=== PATIENT | female | born 1970 | race African-American/Black ===

== ENCOUNTER 2021-02-01 06:21 | Inpatient (IN) | payer OTHER ==
[2021-01-26 14:39] VITALS: BMI 27.3
[2021-02-01] MEDS ORDERED: BUPIVACAINE LIPOSOME/PF (EXPAREL) 266 MG/20 ML VIAL ONE (08:15)
[2021-02-01] MEDS ORDERED: MIDAZOLAM HCL 2 MG/2 ML SINGLE DOSE VIAL ONE ×3 (08:15→10:07)
[2021-02-01] MEDS ORDERED: SODIUM CHLORIDE 0.9% P/F 10 ML VIAL IJ ONE (08:15)
[2021-02-01] MEDS ORDERED: BUPIVACAINE HCL 50 ML ONE ×2 (08:15→09:02)
[2021-02-01] MEDS ORDERED: DEXAMETHASONE SOD PHOSPHATE 4 MG/1 ML VIAL ONE (09:00)
[2021-02-01] MEDS ORDERED: ONDANSETRON 4 MG/2 ML VIAL ONE (09:00)
[2021-02-01] MEDS ORDERED: VANCOMYCIN 1,000 MG VIAL (RESTRICTED TO ID ONLY) ONE ×2 (09:00→10:13)
[2021-02-01] MEDS ORDERED: TRANEXAMIC ACID 1000 MG/10 ML VIAL ONE (09:00)
[2021-02-01] MEDS ORDERED: ceFAZolin SODIUM 1 GM VIAL ONE (09:00)
[2021-02-01] MEDS ORDERED: PROPOFOL 20 ML ONE ×7 (09:03→11:38)
[2021-02-01] MEDS ORDERED: ONDANSETRON 4 MG/2 ML VIAL IVPUSH PRN ×2 (09:36→12:54)
[2021-02-01] MEDS ORDERED: LACTATED RINGERS SOLUTION 1,000 ML IV SCH ×2 (09:45→13:00)
[2021-02-01] MEDS ORDERED: BUPIVICAINE 0.25%/MORPH PF/KETOROLAC - 51ML DISP.SYRINGE IA ONE ×2 (11:14→11:17)
[2021-02-01] MEDS ORDERED: VANCOMYCIN 1,000 MG VIAL (RESTRICTED TO ID ONLY) IVPB ONE (11:17)
[2021-02-01] MEDS ORDERED: ACETAMINOPHEN 325 MG TABLET (FP) PO SCH (12:00)
[2021-02-01] MEDS ORDERED: MAG HYDROX/AL HYDROX/SIMETH 30 ML UNIT-DOSE CUP PO PRN (12:54)
[2021-02-01] MEDS ORDERED: ACETAMINOPHEN 325 MG TABLET (FP) ONE (13:41)
[2021-02-01] MEDS: oxyCODONE HCL 10 MG SUSTAINED ACTING TABLET PO SCH ×2 (15:27→21:16)
[2021-02-01] MEDS: CEFAZOLIN 2 GM/D5W 2 GM/50 ML ML IVPB SCH (16:36)
[2021-02-01] MEDS: ACETAMINOPHEN 325 MG TABLET (FP) PO SCH (19:28)
[2021-02-01] MEDS: oxyCODONE HCL 5 MG TABLET PO PRN (19:29)
[2021-02-01] MEDS ORDERED: CEFAZOLIN 2 GM/D5W 2 GM/50 ML ML IVPB SCH (20:00)
[2021-02-01] MEDS: GABAPENTIN 300 MG CAPSULE PO SCH (21:16)
[2021-02-01] MEDS: SENNOSIDES/DOCUSATE COMBO (SENNA PLUS) TABLET (UD) PO SCH (21:17)
[2021-02-02] MEDS: CEFAZOLIN 2 GM/D5W 2 GM/50 ML ML IVPB SCH ×2 (00:17→09:39)
[2021-02-02] MEDS: oxyCODONE HCL 5 MG TABLET PO PRN ×4 (00:39→15:36)
[2021-02-02] MEDS: ACETAMINOPHEN 325 MG TABLET (FP) PO SCH ×4 (01:23→21:23)
[2021-02-02 08:15] LABS: CALCIUM 9.2 mg/dl (8.5-10); CREATININE 0.5 mg/dl (0.55-1.3)
[2021-02-02 08:17] LABS: HEMATOCRIT 34.7 % (32.4-45.2); HEMOGLOBIN 11.5 GM/dl (10.7-15.3); MCH 29.8 pg (25.7-33.7); MCHC 33.2 g/dl (32.0-36.0); MEAN CELL VOLUME 89.9 fl (80-96); MEAN PLT VOLUME 9.1 fl (7.5-11.1); PLATELET COUNT 255 K/MM3 (134-434); RBC 3.86 M/mm3 (3.60-5.2); RDW 13.8 % (11.6-15.6); WHITE BLOOD COUNT 9.4 K/mm3 (4.0-10.8)
[2021-02-02] MEDS: MULTIVITAMINS (DAILY MVI) TABLET (FP) PO SCH (09:34)
[2021-02-02] MEDS: SENNOSIDES/DOCUSATE COMBO (SENNA PLUS) TABLET (UD) PO SCH ×2 (09:34→21:22)
[2021-02-02] MEDS: DULoxetine HCL 30 MG CAPSULE.DR PO SCH (09:34)
[2021-02-02] MEDS: ASPIRIN 325 MG TABLET PO SCH ×2 (09:35→21:22)
[2021-02-02] MEDS: PANTOPRAZOLE 40 MG TABLET PO SCH (09:35)
[2021-02-02] MEDS: ARIPiprazole 15 MG TABLET PO SCH (09:35)
[2021-02-02] MEDS: GABAPENTIN 300 MG CAPSULE PO SCH ×2 (09:35→21:22)
[2021-02-02] MEDS: oxyCODONE HCL 10 MG SUSTAINED ACTING TABLET PO SCH ×2 (09:36→21:23)
[2021-02-02] MEDS ORDERED: ARIPiprazole 30 MG TABLET PO SCH (10:00)
[2021-02-03] MEDS: ACETAMINOPHEN 325 MG TABLET (FP) PO SCH ×2 (02:57→10:12)
[2021-02-03] MEDS: oxyCODONE HCL 5 MG TABLET PO PRN (06:24)
[2021-02-03 06:56] VITALS: PULSE 74
[2021-02-03 07:31] LABS: HEMATOCRIT 32.2 % (32.4-45.2); HEMOGLOBIN 10.7 GM/dl (10.7-15.3); MCHC 33.3 g/dl (32.0-36.0); MEAN CELL VOLUME 90.1 fl (80-96); MEAN PLT VOLUME 8.6 fl (7.5-11.1); PLATELET COUNT 266 K/MM3 (134-434); RBC 3.57 M/mm3 (3.60-5.2); RDW 13.8 % (11.6-15.6); WHITE BLOOD COUNT 8.7 K/mm3 (4.0-10.8)
[2021-02-03] MEDS: oxyCODONE HCL 10 MG SUSTAINED ACTING TABLET PO SCH (10:11)
[2021-02-03] MEDS: GABAPENTIN 300 MG CAPSULE PO SCH (10:11)
[2021-02-03] MEDS: SENNOSIDES/DOCUSATE COMBO (SENNA PLUS) TABLET (UD) PO SCH (10:12)
[2021-02-03] MEDS: ASPIRIN 325 MG TABLET PO SCH (10:12)
[2021-02-03] MEDS: MULTIVITAMINS (DAILY MVI) TABLET (FP) PO SCH (10:12)
[2021-02-03] MEDS: PANTOPRAZOLE 40 MG TABLET PO SCH (10:12)
[2021-02-03] MEDS: DULoxetine HCL 30 MG CAPSULE.DR PO SCH (10:12)
[2021-02-03] MEDS: ARIPiprazole 15 MG TABLET PO SCH (10:12)
[2021-02-03 10:16] VITALS: BP 122/58; TEMP 99
== END 2021-02-03 13:13 | disposition home or self-care (01) | DRG 302 ==
LOC: FM/S 06:21 → MERGE 08:00 → FM/S 14:14
PROVIDERS: ADMIT Orthopaedic Surgery Sports Medicine; ATTEND Nurse Practitioner Acute Care
PROC: 8E0Y0CZ Robotic Assisted Procedure of Lower Extremity, Open Approach (ICD-10-PCS; 2021-02-01)
PROC: 0SRD0J9 Replacement of Left Knee Joint with Synthetic Substitute, Cemented, Open Approach (ICD-10-PCS; principal; 2021-02-01 09:11)
DX: M17.12 Unilateral primary osteoarthritis, left knee (principal); F32.9 Major depressive disorder, single episode, unspecified
CPT/HCPCS: 36415; 73560-TC-LT-FY; 80048; 84703; 85027; 88305-TC; 88311-TC; 94760; 97116-GP; 97162-GP

== ENCOUNTER 2021-11-05 05:44 | Day surgery (SDC) | payer OTHER ==
[2021-11-02 14:56] VITALS: BMI 29.5
[2021-11-05] MEDS ORDERED: SUCCINYLCHOLINE CHLORIDE 200 MG/10 ML SYRINGE ONE (07:29)
[2021-11-05] MEDS ORDERED: PROPOFOL 20 ML ONE ×2 (07:29)
[2021-11-05] MEDS ORDERED: ONDANSETRON 4 MG/2 ML VIAL IVPUSH PRN (08:06)
[2021-11-05] MEDS ORDERED: PROMETHAZINE HCL 25 MG/1 ML VIAL IVPUSH PRN (08:06)
[2021-11-05] MEDS ORDERED: oxyCODONE HCL 5 MG TABLET PO PRN (08:06)
[2021-11-05] MEDS ORDERED: ONDANSETRON 4 MG/2 ML VIAL ONE (08:12)
[2021-11-05] MEDS ORDERED: LACTATED RINGERS SOLUTION 1,000 ML IV SCH (08:15)
[2021-11-05 08:52] VITALS: TEMP 97.8
[2021-11-05 09:13] VITALS: BP 122/78; PULSE 60
== END 2021-11-05 09:05 | disposition home or self-care (01) ==
LOC: FASU 05:44
PROVIDERS: ATTEND Orthopaedic Surgery Sports Medicine
PROC: 0SNDXZZ Release Left Knee Joint, External Approach (ICD-10-PCS; principal; 2021-11-05 07:41)
DX: M24.662 Ankylosis, left knee (principal); M25.662 Stiffness of left knee, not elsewhere classified
CPT/HCPCS: 81025; 94760

== ENCOUNTER 2022-07-01 08:44 | Inpatient (IN) | payer OTHER ==
[2022-06-27 12:04] VITALS: BMI 29.5
[2022-07-01] MEDS ORDERED: TRANEXAMIC ACID 1000 MG/10 ML VIAL IVPUSH ONE (09:37)
[2022-07-01] MEDS ORDERED: CEFAZOLIN 2 GM in DEXTROSE 5%-WATER - 50 ML IVPB ONE (10:45)
[2022-07-01] MEDS ORDERED: VANCOMYCIN 1,000 MG VIAL (RESTRICTED TO ID ONLY) ONE ×2 (11:34→15:01)
[2022-07-01] MEDS ORDERED: SODIUM CHLORIDE 0.9% P/F 10 ML VIAL IJ ONE (13:11)
[2022-07-01] MEDS ORDERED: BUPIVACAINE HCL 100 ML ONE (13:11)
[2022-07-01] MEDS ORDERED: BUPIVACAINE LIPOSOME/PF (EXPAREL) 266 MG/20 ML VIAL ONE (13:11)
[2022-07-01] MEDS ORDERED: MIDAZOLAM HCL 2 MG/2 ML SINGLE DOSE VIAL ONE ×5 (13:11→16:23)
[2022-07-01] MEDS ORDERED: BUPIVACAINE HCL/PF 0.5% (5MG/ML) 10 ML VIAL ONE (13:46)
[2022-07-01] MEDS ORDERED: ePHEDrine SULFATE 50 MG/1 ML AMPULE ONE (14:48)
[2022-07-01] MEDS ORDERED: LIDOCAINE HCL/PF 2% SDV 5ML VIAL ONE (15:01)
[2022-07-01] MEDS ORDERED: oxyCODONE HCL 5 MG TABLET PO PRN ×2 (15:20)
[2022-07-01] MEDS ORDERED: ONDANSETRON 4 MG/2 ML VIAL IVPUSH PRN ×2 (15:20→18:03)
[2022-07-01] MEDS ORDERED: LACTATED RINGERS SOLUTION 1,000 ML IV SCH ×2 (15:30→18:15)
[2022-07-01 16:19] LABS: HIV INTERPRETATION NEGATIVE (NEGATIVE)
[2022-07-01] MEDS ORDERED: BUPIVICAINE 0.25%/MORPH PF/KETOROLAC - 51ML DISP.SYRINGE IA ONE (16:52)
[2022-07-01] MEDS ORDERED: TRANEXAMIC ACID 1000 MG/10 ML VIAL ONE (17:15)
[2022-07-01] MEDS ORDERED: PROPOFOL 20 ML ONE (17:16)
[2022-07-01] MEDS ORDERED: MAGNESIUM HYDROX 2400MG/30ML ORAL SUSPENSION 30 ML CUP PO PRN (18:03)
[2022-07-01] MEDS ORDERED: MAG HYDROX/AL HYDROX/SIMETH 30 ML UNIT-DOSE CUP PO PRN (18:03)
[2022-07-01] MEDS: ACETAMINOPHEN 1000 MG/100 ML BAG IVPB ONE (18:40)
[2022-07-01] MEDS ORDERED: ACETAMINOPHEN INJECTION 100 ML IVPB ONE (18:43)
[2022-07-01] MEDS: KETOROLAC TROMETHAMINE 30 MG/1 ML VIAL IVPUSH SCH (21:38)
[2022-07-01] MEDS: ACETAMINOPHEN 500 MG TABLET (FP) PO SCH (21:39)
[2022-07-01] MEDS: GABAPENTIN 300 MG CAPSULE PO SCH (21:39)
[2022-07-01] MEDS: oxyCODONE HCL 10 MG SUSTAINED ACTING TABLET PO SCH (21:39)
[2022-07-01] MEDS: SENNOSIDES/DOCUSATE COMBO (SENNA PLUS) TABLET (UD) PO SCH (21:39)
[2022-07-01] MEDS ORDERED: traZODone HCL 50 MG TABLET (FP) PO SCH (22:00)
[2022-07-01] MEDS ORDERED: GABAPENTIN 300 MG CAPSULE PO SCH (22:00)
[2022-07-01] MEDS: CEFAZOLIN SODIUM 2 GM in DEXTROSE 5%-WATER 100 ML IVPB SCH (23:03)
[2022-07-02] MEDS: ACETAMINOPHEN 500 MG TABLET (FP) PO SCH ×2 (05:00→09:26)
[2022-07-02] MEDS: ACETAMINOPHEN 1000 MG/100 ML BAG IVPB ONE (05:07)
[2022-07-02] MEDS: KETOROLAC TROMETHAMINE 30 MG/1 ML VIAL IVPUSH SCH (05:08)
[2022-07-02] MEDS: CEFAZOLIN SODIUM 2 GM in DEXTROSE 5%-WATER 100 ML IVPB SCH (06:03)
[2022-07-02 08:34] LABS: HEMATOCRIT 37.3 % (32.4-45.2); HEMOGLOBIN 12.6 G/dL (10.7-15.3); MCHC 33.8 g/dl (32.0-36.0); MEAN CELL VOLUME 91.8 fl (80-96); MEAN PLT VOLUME 8.6 fl (7.5-11.1); PLATELET COUNT 285.5 10^3/uL (134-434); RBC 4.06 10^6/uL (3.60-5.2); RDW 14.2 % (11.6-15.6); WHITE BLOOD COUNT 11.2 10^3/uL (4.0-10.8)
[2022-07-02 08:35] LABS: CALCIUM 9.4 mg/dl (8.5-10); CREATININE 0.6 mg/dl (0.55-1.3)
[2022-07-02] MEDS: GABAPENTIN 300 MG CAPSULE PO SCH (09:26)
[2022-07-02] MEDS: SENNOSIDES/DOCUSATE COMBO (SENNA PLUS) TABLET (UD) PO SCH (09:27)
[2022-07-02] MEDS: oxyCODONE HCL 10 MG SUSTAINED ACTING TABLET PO SCH (09:27)
[2022-07-02 09:50] VITALS: BP 138/90; PULSE 69; RESP 16; TEMP 98.4
[2022-07-02] MEDS ORDERED: DULoxetine HCL 30 MG CAPSULE.DR PO SCH (10:00)
[2022-07-02] MEDS ORDERED: ASPIRIN 325 MG TABLET PO SCH (10:00)
[2022-07-02] MEDS ORDERED: ARIPiprazole 15 MG TABLET PO SCH (10:00)
[2022-07-02] MEDS ORDERED: PANTOPRAZOLE 40 MG TABLET PO SCH (10:00)
== END 2022-07-02 13:51 | disposition home or self-care (01) | DRG 302 ==
LOC: FM/S 08:44 → EDSTATUS 09:00 → FM/S 13:47
PROVIDERS: ADMIT Internal Medicine; ATTEND Internal Medicine
PROC: 8E0Y0CZ Robotic Assisted Procedure of Lower Extremity, Open Approach (ICD-10-PCS; 2022-07-01)
PROC: 0SRC0J9 Replacement of Right Knee Joint with Synthetic Substitute, Cemented, Open Approach (ICD-10-PCS; principal; 2022-07-01 15:25)
DX: M17.11 Unilateral primary osteoarthritis, right knee (principal); F31.9 Bipolar disorder, unspecified
CPT/HCPCS: 36415; 73560-TC-RT-FY; 80048; 85027; 87389; 88305-TC; 88311-TC; 94760; 97116-GP; 97161-GP; C1776; C1889

== ENCOUNTER 2022-12-19 06:02 | Day surgery (SDC) | payer OTHER ==
[2022-12-14 13:41] VITALS: BMI 31.3
[2022-12-19] MEDS ORDERED: SUCCINYLCHOLINE CHLORIDE 200 MG/10 ML SYRINGE ONE (07:21)
[2022-12-19] MEDS ORDERED: ONDANSETRON 4 MG/2 ML VIAL ONE ×2 (07:21→08:45)
[2022-12-19] MEDS ORDERED: DEXAMETHASONE SOD PHOSPHATE 4 MG/1 ML VIAL ONE (07:21)
[2022-12-19] MEDS ORDERED: PROPOFOL 40 ML ONE (07:21)
[2022-12-19] MEDS ORDERED: oxyCODONE HCL 5 MG TABLET PO PRN ×2 (07:53)
[2022-12-19] MEDS ORDERED: ONDANSETRON 4 MG/2 ML VIAL IVPUSH PRN (07:53)
[2022-12-19] MEDS ORDERED: KETOROLAC TROMETHAMINE 30 MG/1 ML VIAL IVPUSH ONE (07:54)
[2022-12-19] MEDS ORDERED: ACETAMINOPHEN 1000 MG/100 ML BAG IVPB ONE (07:54)
[2022-12-19] MEDS ORDERED: LACTATED RINGERS SOLUTION 1,000 ML IV SCH (08:00)
[2022-12-19] MEDS ORDERED: oxyCODONE HCL 5 MG TABLET ONE (08:34)
[2022-12-19 08:45] VITALS: RESP 16; TEMP 98
[2022-12-19] MEDS ORDERED: FENTANYL CITRATE/PF 50 MCG/ML VIAL ONE ×3 (08:45→08:55)
[2022-12-19 09:17] VITALS: BP 133/61; PULSE 64
== END 2022-12-19 09:55 | disposition home or self-care (01) ==
LOC: FASU 06:02
PROVIDERS: ATTEND Orthopaedic Surgery Sports Medicine
PROC: 0SNCXZZ Release Right Knee Joint, External Approach (ICD-10-PCS; principal; 2022-12-19 07:28)
DX: M24.661 Ankylosis, right knee (principal)
CPT/HCPCS: 94760